=== PATIENT | female | born 1950 | race American Indian/Alaskan Native ===

== ENCOUNTER 2017-06-25 14:46 | Emergency (ER) | payer MEDICARE ==
[2017-06-25 15:41] VITALS: BP 132/88
--- NOTE | 2017-06-25 16:15 | Emergency Department Report ---
Chief Complaint: Abdominal Pain Stated Complaint: RT ABD SWOLLEN/ TROBLE BREATHING Time Seen by Provider: 06/25/17 15:45 - HPI History of Present Illness: Patient came to the emergency room with her niece patient reports that she is having abdominal swelling which trouble breathing. Patient has a history of CVA 2 and she is a poor historian according to her niece. She has a history of CHF and had A. fib in the past and she is on is around toe. Patient also has decreased mobility from stroke. She is on lisinopril, Xarelto, Coreg, cholesterol and diabetic medication isosorbide, atorvastatin, levothyroxine, Lasix. Patient states she is having generalized pain. She is also has chronic swelling to her legs but worse today. She denies any chest pain. - ROS Review of Systems: All systems are negative unless stated in HPI above - Exam Vital Signs: Vital Signs 06/25/17 15:35 Temperature 99 F Pulse Rate 108 H Respiratory 20 Rate Blood Pressure 132/88 O2 Sat by Pulse 99 Oximetry Physical Exam: Gen.: This is a elderly female well-nourished well-developed and nontoxic in appearance CV: Patient with EKG of A. fib and when compared to previous EKG she's had similar EKG. Heart rate is at 108. Lungs: Patient with shortness of breath and exertion, scattered crackles noted to lung bases. Abdomen: Swollen, nontender to palpate. No guarding or rebound tenderness. No peritoneal signs. Normal bowel sounds in all quadrants. Neck: Positive JVD bilaterally Extremity: No clubbing,cyanosis but swelling to bilateral lower extremity. +2 pulses bilaterally MSE screening note: Focused history and physical exam performed. Due to findings the following was ordered: ED Medical Decision Making - Medical Decision Making MDM: Patient screened by provider in triage area. Appropriate protocol initiated and patient to be seen in main ED by Dr. MORRIS Disposition for MSE Condition: Stable Instructions: Abdominal Pain (ED)
[2017-06-25 16:42] LABS: Basophils % (Auto) 0.3 % (0.0-1.8); Eosinophils % (Auto) 1.4 % (0.0-4.3); Hematocrit 38.2 % (30.3-42.9); Hemoglobin 12.3 gm/dl (10.1-14.3); Mean Corpuscular HGB Conc 32 % (30-34); Mean Corpuscular Hemoglobin 27 pg (28-32); Mean Corpuscular Volume 85 fl (79-97); Platelet Count 105 K/mm3 (140-440); Red Blood Count 4.49 M/mm3 (3.65-5.03); Red Cell Distribution Width 17.8 % (13.2-15.2); White Blood Count 5.4 K/mm3 (4.5-11.0)
[2017-06-25 17:07] LABS: Alanine Aminotransferase 12 units/L (7-56); Albumin 3.9 g/dL (3.9-5); Albumin/Globulin Ratio 1.1 %; Alkaline Phosphatase 85 units/L (35-129); Anion Gap 21 mmol/L; BUN/Creatinine Ratio 20; Blood Urea Nitrogen 24 mg/dL (7-17); Calcium 8.6 mg/dL (8.4-10.2); Carbon Dioxide 20 mmol/L (22-30); Chloride 102.6 mmol/L (98-107); Glucose 186 mg/dL (65-100); Lipase 16 units/L (13-60); Potassium 4.5 mmol/L (3.6-5.0); Sodium 139 mmol/L (137-145); Total Protein 7.5 g/dL (6.3-8.2)
[2017-06-26 01:03] LABS: Bacteria,Urine 1+ /HPF (Negative); Bilirubin,Urine NEG (Negative); Blood,Urine MOD (Negative); Ketones,Urine NEG (Negative); Leukocyte Esterase,Urine NEG (Negative); Mucus,Urine 3+ /HPF; Nitrite,Urine NEG (Negative)
--- NOTE | 2017-06-26 07:46 | XRay Report ---
CHEST XRAY, 2 VIEWS: History: Shortness of breath. Findings: There is mild cardiomegaly. Pulmonary vessels are within normal limits. The lungs are clear and fully expanded. No infiltrate, pleural effusion or pneumothorax. Normal thoracic cage. IMPRESSION: Cardiomegaly. This appears to be new in comparison to 05/10/15.
== END 2017-06-26 01:43 | disposition left against medical advice (07) ==
LOC: ED 14:46
DX: R06.9 Unspecified abnormalities of breathing (principal); Z53.21 Procedure and treatment not carried out due to patient leaving prior to being seen by health care provider
CPT/HCPCS: 36415; 71020; 80053; 81001; 83690; 83880; 84484; 85025; 93005; 93010

== ENCOUNTER 2017-07-25 09:01 | Outpatient (CLI) | payer MEDICARE ==
--- NOTE | 2017-07-25 12:33 | Cat Scan Report ---
CT ABDOMEN AND PELVIS WITH CONTRAST INDICATION: Abdominal pain. COMPARISON: None similar. FINDINGS: Abdomen and pelvis CT performed following oral contrast and intravenous administration of 100 cc of Omnipaque 300. LUNG BASES: Slight cardiomegaly. Nonspecific distal esophageal wall prominence/thickening, not excluded for gastroesophageal reflux and/or hiatal hernia, amongst others. ABDOMEN: Slight contrast reflux noted into the hepatic veins. Mild upper abdominal ascites. Questionable subtle hepatic surface nodularity/cirrhosis. Left hepatic lobe tip touches the spleen in the left upper quadrant. Otherwise grossly unremarkable liver, spleen, gallbladder, pancreas, adrenals, non-aneurysm abdominal aorta, IVC and nonobstructive bowel. Nonhydronephrotic, mildly atrophic kidneys, approximately 8.5 cm in length on the right and 7.3 cm on the left. Rectus diastasis/fat containing umbilical hernia with transverse neck of 5.8 cm with slight subjacent nonobstructive mid transverse colon as on axial images 44-67, series 2. Herniated subcutaneous fat approximately 8.7 x 5.5 cm, sagittal image 125. PELVIS: Few fibroids as calcified 2.4 cm on the right inferiorly, axial image 71, series 2. IUD, pelvic vascular calcifications and unremarkable urinary bladder and the rectosigmoid noted. Small pelvic free fluid. No size significant adenopathy. Diffuse subcutaneous stranding/edema, greatest along bilateral flanks and posteriorly. Mild S-shaped thoracolumbar scoliosis. Multilevel lower thoracic and lumbar spine degenerative spurring. Few small nonspecific densities/calcifications within lower lumbar posterior midline subcutaneous plane also noted as on axial image 40, amongst others. CONCLUSION: No acute CT abnormality, though various findings, including questionable cirrhosis, small ascites, fat-containing umbilical hernia, fibroids, IUD and subcutaneous edema noted, amongst others, as detailed above. Please correlate. Thank you for the opportunity to participate in this patient's care.
== END 2017-07-25 09:02 | disposition home or self-care (01) ==
LOC: CT 09:01
PROVIDERS: ATTEND Family Medicine
DX: K42.9 Umbilical hernia without obstruction or gangrene (principal); D25.9 Leiomyoma of uterus, unspecified; I51.7 Cardiomegaly; R18.8 Other ascites; N26.1 Atrophy of kidney (terminal); Z97.5 Presence of (intrauterine) contraceptive device
CPT/HCPCS: 36415; 74177; 82565; 84520; Q9967